=== PATIENT | female | born 1985 | race Two or more races ===

== ENCOUNTER 2020-06-16 17:36 | Emergency (ER) | payer SELFPAY ==
[~2020-06-16] VITALS: Ht 160 cm; Wt 56.7 kg
[2020-06-16 18:02] VITALS: BP 100/82
--- NOTE | 2020-06-16 18:02 | NUR ---
pt mary jo [address], laying in the sidewalk c/o diffuse abdominal pain w. nausea and diarrhea. pt per [facility] admits to heroin use. gowned and placed on monitor. stable vitals. awaiting md tello.
--- NOTE | 2020-06-16 18:07 | NUR ---
hoa diaz at bedside for eval.
[2020-06-16] MEDS ORDERED: IV NS 0.9% 1,000 ML BAG IV ONE (18:30)
[2020-06-16] MEDS ORDERED: KETOROLAC TROMETHAMINE INJ 30 MG/ML VIAL IV ONE (18:30)
[2020-06-16] MEDS ORDERED: PROCHLORPERAZINE EDISYLATE 10 MG/2 ML VIAL IVP ONE (18:30)
[2020-06-16] MEDS ORDERED: HALOPERIDOL LACTATE INJ 5 MG/ML VIAL IM ONE (18:30)
--- NOTE | 2020-06-16 18:32 | NUR ---
pt refusing lab works and medication. agitated yelling at ed staff. omid diaz in to see patient. refusing to calm down.
--- NOTE | 2020-06-16 18:34 | NUR ---
agitated. refusing all treatments. escorted out of ED.
== END 2020-06-16 18:39 | disposition left against medical advice (07) ==
LOC: ER 17:39
DX: F11.10 Opioid abuse, uncomplicated (principal); R10.84 Generalized abdominal pain; R45.4 Irritability and anger; Z59.0 Homelessness